=== PATIENT | male | born 1965 | race Caucasian/White ===

== ENCOUNTER 2024-05-22 02:23 | Emergency (ER) | payer OTHER, MEDICAID ==
[~2024-05-22] VITALS: Ht 139.7 cm; Wt 72.7 kg
[~2024-05-22 02:23] MED LIST: ALBU18HF12 IH; AMLO-258 PO; AMOX-457 PO; BENZ-227 PO; GUAIF600 PO; HYDR25TA84 PO; METO-391 PO; PRED-554 PO; PREG25 PO
[2024-05-22 02:56] LABS: GLUCOMETER DEV NAME(LOC) ER.7; GLUCOSE,POINT OF CARE 121 MG/DL (70-110)
[2024-05-22 03:11] VITALS: TEMP 98.3
[2024-05-22] MEDS: METHOCARBAMOL 500 MG TABLET PO ONE (03:19)
[2024-05-22] MEDS: KETOROLAC TROMETHAMINE 30 MG/ML VIAL IM ONE (03:19)
[2024-05-22] MEDS: ACETAMINOPHEN 325 MG TABLET PO ONE (03:20)
[2024-05-22] MEDS: LIDOCAINE 5% TRANSDERMAL PATCH TD ONE (04:18)
[2024-05-22] MEDS ORDERED: METH-812 PO (04:19)
[2024-05-22 05:35] VITALS: BP 142/92; PULSE 72; RESP 18; O2SAT 97
== END 2024-05-22 05:57 | disposition home or self-care (01) ==
LOC: EMS 02:23
DX: M54.50 Low back pain, unspecified (principal); F41.9 Anxiety disorder, unspecified; J44.9 Chronic obstructive pulmonary disease, unspecified; E11.9 Type 2 diabetes mellitus without complications; I10 Essential (primary) hypertension; F17.210 Nicotine dependence, cigarettes, uncomplicated; F15.90 Other stimulant use, unspecified, uncomplicated
CPT/HCPCS: 99284; 82962; 96372; J1885

== ENCOUNTER 2024-09-15 15:35 | Inpatient (IN) | payer OTHER, MEDICAID ==
[~2024-09-15] VITALS: Ht 139.7 cm; Wt 68.2 kg
[2024-09-15] VITALS (11 sets, daily range): BP systolic 135–146; BP diastolic 62–84; PULSE 71–141; RESP 16–22; TEMP 97.7–98.9; O2SAT 94–96
[~2024-09-15 15:35] MED LIST changes: +ARIP2TAB3 PO; -BENZ-227 PO; +DOXY-354 PO; +FLUT1BLS3 IH; -GUAIF600 PO; +MELO-107 PO; +METH-812 PO; -METO-391 PO; +METO25 PO; +OMEP20 PO; -PRED-554 PO; +PRED-729 PO
[2024-09-15] MEDS ORDERED: NAPR-1197 PO (15:39)
[2024-09-15 17:41] LABS: BASOPHILS % (AUTO) 0.5 % (0.0-2.0); EOSINOPHILS % (AUTO) 3.9 % (1.0-6.0); LYMPHOCYTES % (AUTO) 22.2 % (22.0-44.0); MEAN CORPUSCULAR HEMOGLOBIN 20.1 pg (26.0-34.0); MEAN CORPUSCULAR HGB CONC 28.4 G/dL (31.0-37.0); MEAN CORPUSCULAR VOLUME 71 fL (80-100); MONOCYTES # (AUTO) 0.9 K/uL (0.1-1.0); MONOCYTES % (AUTO) 9.8 % (2.0-9.0); NEUTROPHILS # (AUTO) 5.6 K/uL (1.8-7.7); NEUTROPHILS % (AUTO) 63.6 % (40.0-70.0); PLATELET COUNT (AUTO) 395 K/uL (150-450); RED BLOOD CELL COUNT(AUTO) 2.76 MIL/uL (4.50-5.90); RED CELL DISTRIBUTION WIDTH 25.9 % (11.5-14.5); WHITE BLOOD COUNT (AUTO) 8.9 K/uL (4.5-11.0)
[2024-09-15] MEDS: FUROSEMIDE 20 MG TABLET PO ONE (17:41)
[2024-09-15] MEDS: MethylPREDNISolone SOD SUCC 125 MG/2 ML VIAL IM ONE (17:42)
[2024-09-15] MEDS: IPRATROPIUM BROMIDE 0.5 MG/2.5 ML NEB SOLUTION NEB ONE (17:42)
[2024-09-15] MEDS: ALBUTEROL SULFATE 2.5 MG/0.5 ML 5 ML NEB SOLUTION NEB ONE (17:42)
[2024-09-15 17:49] LABS: ANION GAP 7 mmol/L (8-16); CALCIUM, TOTAL 8.6 mg/dL (8.8-10.5); CARBON DIOXIDE 29 mmol/L (22-29); CHLORIDE 106 mmol/L (98-107); CREATININE 0.65 mg/dL (0.60-1.30); GLOMERULAR FILTR. RATE CALC > 60 mL/min (>60); GLUCOSE,RANDOM 95 mg/dL (70-110); POTASSIUM 3.8 mmol/L (3.5-5.1); SODIUM SERUM 142 mmol/L (136-145); UREA NITROGEN, BLOOD 15 mg/dL (7-18)
[2024-09-15 17:56] LABS: HEMATOCRIT 19.6 % (41-53); HEMOGLOBIN 5.6 g/dL (13.5-17.5)
[2024-09-15 18:12] LABS: TROPONIN I-HIGH SENSITIVITY 9 ng/L (<76)
[2024-09-15 18:14] LABS: B-TYPE NATRIURETIC PEPTIDE 93 pg/mL (0-100)
[2024-09-15 18:31] LABS: % IRON SATURATION 3.1 % (30-44)
[2024-09-15 18:48] LABS: RBC MORPHOLOGY COMMENT ABNORMAL RBC MORPH
[2024-09-15 19:10] LABS: COVID AG,FIA SOURCE NASAL SWAB
[2024-09-15] MEDS ORDERED: SODIUM CHLORIDE 0.9% 500 ML IV ONE (19:19)
[2024-09-15 19:30] LABS: INFLUENZA TYPE A NEGATIVE FOR TYPE A (NEGATIVE); INFLUENZA TYPE B NEGATIVE FOR TYPE B (NEGATIVE)
[2024-09-15 19:31] LABS: SARS-COV2 (COVID) ANTIGEN,FIA Negative (Negative)
[2024-09-15 20:35] LABS: PATHOLOGY REVIEW, DIFF YES
[2024-09-15] MEDS: DiphenhydrAMINE HCL 25 MG CAPSULE PO ONE (20:36)
[2024-09-15] MEDS: ACETAMINOPHEN 500 MG TABLET PO ONE (20:36)
[2024-09-15] MEDS ORDERED: MORPHINE SULFATE 2 MG/ML SYRINGE IVP PRN (23:45)
[2024-09-15] MEDS ORDERED: ONDANSETRON HCL 4 MG/2 ML VIAL IVP PRN (23:45)
[2024-09-15] MEDS ORDERED: MAGNESIUM HYDROXIDE SUSPENSION 30 ML UDCUP PO PRN (23:45)
[2024-09-15] MEDS ORDERED: BISACODYL 10 MG RECTAL RECTAL SUPPOSITORY PR PRN (23:45)
[2024-09-16] VITALS (14 sets, daily range): BP systolic 112–153; BP diastolic 56–86; PULSE 78–102; RESP 16–20; TEMP 97.5–99; O2SAT 94–100
[2024-09-16] MEDS: MethylPREDNISolone SOD SUCC 125 MG/2 ML VIAL IVP SCH (00:26)
[2024-09-16] MEDS: HEPARIN SODIUM,PORCINE 5,000 UNITS/ML VIAL SQ SCH (00:27)
[2024-09-16] MEDS: OMEPRAZOLE 20 MG CAPSULE PO ONE (00:29)
[2024-09-16] MEDS: ALBUTEROL SULFATE 2.5 MG/0.5 ML NEB SOLUTION NEB SCH (03:00)
[2024-09-16] MEDS: IPRATROPIUM BROMIDE 0.5 MG/2.5 ML NEB SOLUTION NEB SCH (03:00)
[2024-09-16] MEDS: OxyCODONE HCL/ACETAMINOPHEN 5-325 MG TABLET PO PRN (04:12)
[2024-09-16] MEDS: ALBUTEROL SULFATE 2.5 MG/0.5 ML NEB SOLUTION NEB PRN (04:35)
[2024-09-16] MEDS: IPRATROPIUM BROMIDE 0.5 MG/2.5 ML NEB SOLUTION NEB PRN (04:35)
[2024-09-16 06:49] LABS: HEMATOCRIT 25.1 % (41-53); HEMOGLOBIN 7.7 g/dL (13.5-17.5); MEAN CORPUSCULAR HEMOGLOBIN 22.6 pg (26.0-34.0); MEAN CORPUSCULAR HGB CONC 30.6 G/dL (31.0-37.0); MEAN CORPUSCULAR VOLUME 74 fL (80-100); PLATELET COUNT (AUTO) 589 K/uL (150-450); RED BLOOD CELL COUNT(AUTO) 3.41 MIL/uL (4.50-5.90); RED CELL DISTRIBUTION WIDTH 25.7 % (11.5-14.5); WHITE BLOOD COUNT (AUTO) 6.8 K/uL (4.5-11.0)
[2024-09-16 07:40] LABS: BAND NEUTROPHILS % (MANUAL) 2 % (0-5); LYMPHOCYTES % (MANUAL) 7 % (22-44); MONOCYTES % (MANUAL) 3 % (2-9); SEGMENTED NEUTROPHILS % 88 % (40-70); TOTAL CELLS COUNTED 100
[2024-09-16 07:41] LABS: RBC MORPHOLOGY COMMENT DIMORPHIC RBC
[2024-09-16] MEDS: PANTOPRAZOLE SODIUM 40 MG DR TABLET PO SCH (08:10)
[2024-09-16] MEDS: PREGABALIN 25 MG CAPSULE PO SCH (08:10)
[2024-09-16] MEDS: MELOXICAM 7.5 MG TABLET PO SCH (08:11)
[2024-09-16] MEDS: DOCUSATE SODIUM 100 MG CAPSULE PO SCH (08:12)
[2024-09-16] MEDS: ACETAMINOPHEN 325 MG TABLET PO PRN (16:09)
[2024-09-16] MEDS: NICOTINE 21 MG/24 HOUR PATCH TD SCH (21:10)
[2024-09-16] MEDS: ZOLPIDEM TARTRATE 5 MG TABLET PO PRN (22:00)
[2024-09-17] VITALS (16 sets, daily range): BP systolic 132–151; BP diastolic 68–75; PULSE 74–107; RESP 17–20; TEMP 97.9–98.4; O2SAT 93–100
[2024-09-17] MEDS ORDERED: SODIUM CHLORIDE 0.9% 250 ML IV ONE (04:28)
[2024-09-17] MEDS: SOD FERRIC GLUC COMPLX/SUCROSE 125 MG in SODIUM CHLORIDE 0.9% 100 ML IV ONE (04:33)
[2024-09-17] MEDS: LORazepam 2 MG/ML VIAL IVP PRN (05:51)
[2024-09-17 06:52] LABS: BASOPHILS % (AUTO) 0.1 % (0.0-2.0); EOSINOPHILS % (AUTO) 0 % (1.0-6.0); HEMATOCRIT 25.2 % (41-53); HEMOGLOBIN 7.6 g/dL (13.5-17.5); LYMPHOCYTES # (AUTO) 1.1 K/uL (1.0-4.8); LYMPHOCYTES % (AUTO) 8.3 % (22.0-44.0); MEAN CORPUSCULAR HGB CONC 30.1 G/dL (31.0-37.0); MEAN CORPUSCULAR VOLUME 73 fL (80-100); MONOCYTES # (AUTO) 0.4 K/uL (0.1-1.0); MONOCYTES % (AUTO) 3.2 % (2.0-9.0); NEUTROPHILS # (AUTO) 11.3 K/uL (1.8-7.7); PLATELET COUNT (AUTO) 594 K/uL (150-450); RED BLOOD CELL COUNT(AUTO) 3.45 MIL/uL (4.50-5.90); RED CELL DISTRIBUTION WIDTH 26.2 % (11.5-14.5); WHITE BLOOD COUNT (AUTO) 12.7 K/uL (4.5-11.0)
[2024-09-17 07:06] LABS: ANION GAP 5 mmol/L (8-16); CALCIUM, TOTAL 8.8 mg/dL (8.8-10.5); CARBON DIOXIDE 31 mmol/L (22-29); CHLORIDE 101 mmol/L (98-107); CREATININE 0.75 mg/dL (0.60-1.30); GLOMERULAR FILTR. RATE CALC > 60 mL/min (>60); GLUCOSE,RANDOM 150 mg/dL (70-110); POTASSIUM 4.4 mmol/L (3.5-5.1); SODIUM SERUM 137 mmol/L (136-145); UREA NITROGEN, BLOOD 21 mg/dL (7-18)
[2024-09-17 07:17] LABS: NEUTROPHILS % (AUTO) 88.4 % (40.0-70.0)
[2024-09-17 08:14] LABS: RBC MORPHOLOGY COMMENT DIMORPHIC RBC
[2024-09-17] MEDS: FERROUS SULFATE 325 MG EC TABLET PO SCH (11:28)
[2024-09-17] MEDS: MethylPREDNISolone SOD SUCC 125 MG/2 ML VIAL IVP SCH (11:32)
[2024-09-17 16:59] LABS: PH,URINE DRUG SCREEN 6.5 (5.0-8.0)
[2024-09-17 17:07] LABS: ALCOHOL, URINE DRUG SCREEN NEGATIVE (NEGATIVE); AMPHET/METH SCREEN,URINE NEGATIVE (NEGATIVE); BARBITURATE SCREEN, URINE NEGATIVE (NEGATIVE); BENZODIAZEPINES SCREEN,URINE NEGATIVE (NEGATIVE); CANNABINOID SCREEN,URINE NEGATIVE (NEGATIVE); COCAINE SCREEN,URINE NEGATIVE (NEGATIVE); METHADONE SCREEN, URINE NEGATIVE (NEGATIVE); OPIATE SCREEN,URINE NEGATIVE (NEGATIVE); PHENCYCLIDINE SCREEN,URINE NEGATIVE (NEGATIVE)
[2024-09-17] MEDS: PANTOPRAZOLE SODIUM 40 MG DR TABLET PO SCH (20:41)
[2024-09-18] VITALS (18 sets, daily range): BP systolic 105–161; BP diastolic 55–91; PULSE 76–103; RESP 17–20; TEMP 97.4–98.7; O2SAT 93–100
[2024-09-18] MEDS: MethylPREDNISolone SOD SUCC 125 MG/2 ML VIAL IVP SCH (15:40)
[2024-09-19] VITALS (9 sets, daily range): BP systolic 125–165; BP diastolic 70–100; PULSE 82–91; RESP 18–28; TEMP 98–98.3; O2SAT 94–98
[2024-09-19 05:26] LABS: GLUCOMETER DEV NAME(LOC) 5S.1D; GLUCOSE,POINT OF CARE 167 MG/DL (70-110)
[2024-09-19 06:43] LABS: HEMATOCRIT 25.5 % (41-53); HEMOGLOBIN 7.4 g/dL (13.5-17.5); MEAN CORPUSCULAR HEMOGLOBIN 21.7 pg (26.0-34.0); MEAN CORPUSCULAR VOLUME 75 fL (80-100); PLATELET COUNT (AUTO) 532 K/uL (150-450); RED BLOOD CELL COUNT(AUTO) 3.42 MIL/uL (4.50-5.90); WHITE BLOOD COUNT (AUTO) 18.5 K/uL (4.5-11.0)
[2024-09-19 07:08] LABS: BAND NEUTROPHILS % (MANUAL) 3 % (0-5); LYMPHOCYTES % (MANUAL) 9 % (22-44); MONOCYTES % (MANUAL) 3 % (2-9); RBC MORPHOLOGY COMMENT DIMORPHIC; SEGMENTED NEUTROPHILS % 85 % (40-70); TOTAL CELLS COUNTED 100
[2024-09-19] MEDS: CloNIDine HCL 0.1 MG TABLET PO PRN (08:58)
[2024-09-19] MEDS ORDERED: FERR325T27 PO (11:45)
== END 2024-09-19 15:25 | disposition home or self-care (01) | DRG 189 ==
LOC: EMS 15:35 → EDH 21:00 → 5S 09-16 01:03
PROVIDERS: ADMIT Hospitalist; ATTEND Hospitalist
PROC: 30233N1 Transfusion of Nonautologous Red Blood Cells into Peripheral Vein, Percutaneous Approach (ICD-10-PCS; principal; 2024-09-15)
DX: J96.21 Acute and chronic respiratory failure with hypoxia (principal); J44.1 Chronic obstructive pulmonary disease with (acute) exacerbation; Z99.81 Dependence on supplemental oxygen; D50.9 Iron deficiency anemia, unspecified; Z20.822 Contact with and (suspected) exposure to COVID-19; I50.9 Heart failure, unspecified; I11.0 Hypertensive heart disease with heart failure; F41.9 Anxiety disorder, unspecified; Z68.34 Body mass index [BMI] 34.0-34.9, adult; E66.9 Obesity, unspecified; E11.9 Type 2 diabetes mellitus without complications; Z87.891 Personal history of nicotine dependence
CPT/HCPCS: 71045; 80048; 80307; 82271; 82962; 83540; 83550; 83880; 84484; 85007; 85025; 85027; 85045; 86850; 86900; 86901; 86923; 87804; 93005; 93306; 94640; 99285; G0378; J1644; J2060; J2916; J2919; J7040; J7050; P9016; 36415-L1; 36415-TC; J7613

== ENCOUNTER 2025-01-03 13:49 | Emergency (ER) | payer MEDICARE, MEDICAID ==
[~2025-01-03] VITALS: Ht 139.7 cm; Wt 69.0 kg
[~2025-01-03 13:49] MED LIST changes: -AMLO-258 PO; -AMOX-457 PO; -ARIP2TAB3 PO; -DOXY-354 PO; +FERR325T27 PO; -HYDR25TA84 PO; -MELO-107 PO; -METH-812 PO; -METO25 PO; +OMEP-148 PO; -OMEP20 PO
[2025-01-03 13:55] VITALS: TEMP 98.2
[2025-01-03 14:16] LABS: GLUCOMETER DEV NAME(LOC) ERT.6; GLUCOSE,POINT OF CARE 143 MG/DL (70-110)
[2025-01-03 14:27] LABS: BASOPHILS % (AUTO) 0.3 % (0.0-2.0); EOSINOPHILS % (AUTO) 2.4 % (1.0-6.0); HEMATOCRIT 34.2 % (41-53); HEMOGLOBIN 10.3 g/dL (13.5-17.5); LYMPHOCYTES # (AUTO) 1.5 K/uL (1.0-4.8); LYMPHOCYTES % (AUTO) 16.4 % (22.0-44.0); MEAN CORPUSCULAR HEMOGLOBIN 22.9 pg (26.0-34.0); MEAN CORPUSCULAR HGB CONC 30.1 G/dL (31.0-37.0); MEAN CORPUSCULAR VOLUME 76 fL (80-100); MONOCYTES # (AUTO) 0.8 K/uL (0.1-1.0); MONOCYTES % (AUTO) 8.5 % (2.0-9.0); NEUTROPHILS # (AUTO) 6.4 K/uL (1.8-7.7); NEUTROPHILS % (AUTO) 72.4 % (40.0-70.0); PLATELET COUNT (AUTO) 355 K/uL (150-450); RED BLOOD CELL COUNT(AUTO) 4.49 MIL/uL (4.50-5.90); RED CELL DISTRIBUTION WIDTH 21.3 % (11.5-14.5); WHITE BLOOD COUNT (AUTO) 8.9 K/uL (4.5-11.0)
[2025-01-03 14:31] LABS: ANION GAP 8 mmol/L (8-16); CALCIUM, TOTAL 9.2 mg/dL (8.8-10.5); CARBON DIOXIDE 28 mmol/L (22-29); CHLORIDE 102 mmol/L (98-107); CREATININE 0.55 mg/dL (0.60-1.30); GLOMERULAR FILTR. RATE CALC > 60 mL/min (>60); GLUCOSE,RANDOM 110 mg/dL (70-110); POTASSIUM 3.5 mmol/L (3.5-5.1); SODIUM SERUM 138 mmol/L (136-145); UREA NITROGEN, BLOOD 20 mg/dL (7-18)
[2025-01-03 14:38] LABS: B-TYPE NATRIURETIC PEPTIDE 14 pg/mL (0-100)
[2025-01-03 14:41] LABS: TROPONIN I-HIGH SENSITIVITY 7 ng/L (<76)
[2025-01-03 14:45] LABS: RBC MORPHOLOGY COMMENT ABNORMAL RBC MORPH
[2025-01-03] MEDS ORDERED: FLUT1BLS3 IH (16:47)
[2025-01-03] MEDS ORDERED: FERR325T27 PO (16:47)
[2025-01-03] MEDS ORDERED: OMEP-148 PO (16:47)
[2025-01-03] MEDS ORDERED: PREG25 PO (16:47)
[2025-01-03] MEDS ORDERED: PRED-729 PO (16:47)
[2025-01-03] MEDS ORDERED: ALBU18HF12 IH (16:47)
[2025-01-03 17:03] VITALS: BP 152/77; PULSE 84; RESP 20; O2SAT 98
== END 2025-01-03 17:11 | disposition home or self-care (01) ==
LOC: EMS 13:52
DX: R07.2 Precordial pain (principal); J44.1 Chronic obstructive pulmonary disease with (acute) exacerbation; I11.0 Hypertensive heart disease with heart failure; I50.9 Heart failure, unspecified; E11.9 Type 2 diabetes mellitus without complications; F17.210 Nicotine dependence, cigarettes, uncomplicated; Z79.52 Long term (current) use of systemic steroids; Z79.899 Other long term (current) drug therapy
CPT/HCPCS: 71045; 80048; 82962; 83880; 84484; 85025; 93005; 99285; 36415-L1; 36415-TC

== ENCOUNTER 2025-01-08 10:11 | Inpatient (IN) | payer MEDICARE, MEDICAID ==
[~2025-01-08] VITALS: Ht 152.4 cm; Wt 88.1 kg
[2025-01-08 10:51] LABS: BASOPHILS % (AUTO) 0.5 % (0.0-2.0); EOSINOPHILS % (AUTO) 1.1 % (1.0-6.0); HEMATOCRIT 32.7 % (41-53); LYMPHOCYTES # (AUTO) 1.3 K/uL (1.0-4.8); LYMPHOCYTES % (AUTO) 15.5 % (22.0-44.0); MEAN CORPUSCULAR HGB CONC 30.5 G/dL (31.0-37.0); MEAN CORPUSCULAR VOLUME 75 fL (80-100); MONOCYTES # (AUTO) 0.6 K/uL (0.1-1.0); MONOCYTES % (AUTO) 6.9 % (2.0-9.0); NEUTROPHILS # (AUTO) 6.3 K/uL (1.8-7.7); PLATELET COUNT (AUTO) 365 K/uL (150-450); RED BLOOD CELL COUNT(AUTO) 4.34 MIL/uL (4.50-5.90); RED CELL DISTRIBUTION WIDTH 20.4 % (11.5-14.5); WHITE BLOOD COUNT (AUTO) 8.3 K/uL (4.5-11.0)
[2025-01-08 11:03] LABS: ANION GAP 7 mmol/L (8-16); CALCIUM, TOTAL 9.3 mg/dL (8.8-10.5); CARBON DIOXIDE 29 mmol/L (22-29); CHLORIDE 102 mmol/L (98-107); CREATININE 0.59 mg/dL (0.60-1.30); GLOMERULAR FILTR. RATE CALC > 60 mL/min (>60); GLUCOSE,RANDOM 105 mg/dL (70-110); POTASSIUM 3.9 mmol/L (3.5-5.1); SODIUM SERUM 138 mmol/L (136-145); UREA NITROGEN, BLOOD 22 mg/dL (7-18)
[2025-01-08 11:09] LABS: ALBUMIN 3.3 g/dL (3.4-5.0); BILIRUBIN,DIRECT 0.1 mg/dL (0.00-0.20); BILIRUBIN,TOTAL 0.2 mg/dL (0.1-1.0); TOTAL PROTEIN, SERUM 7.1 g/dL (6.4-8.2)
[2025-01-08 11:11] LABS: COVID AG,FIA SOURCE NASAL SWAB
[2025-01-08 11:12] LABS: B-TYPE NATRIURETIC PEPTIDE 24 pg/mL (0-100)
[2025-01-08 11:13] LABS: CREATINE KINASE, TOTAL ONLY 72 U/L (39-308); TROPONIN I-HIGH SENSITIVITY 7 ng/L (<76)
[2025-01-08 11:14] LABS: PROTHROMBIN TIME 10.1 SEC (9.4-11.6)
[2025-01-08 11:30] LABS: INFLUENZA TYPE A NEGATIVE FOR TYPE A (NEGATIVE); INFLUENZA TYPE B NEGATIVE FOR TYPE B (NEGATIVE); SARS-COV2 (COVID) ANTIGEN,FIA Negative (Negative)
[2025-01-08] MEDS: HydrALAZINE HCL 20 MG/ML VIAL IVP ONE (11:33)
[2025-01-08] MEDS ORDERED: CloNIDine HCL 0.1 MG TABLET PO PRN (11:45)
[2025-01-08] MEDS ORDERED: ONDANSETRON HCL 4 MG/2 ML VIAL IVP PRN (11:45)
[2025-01-08 12:04] LABS: AMPHET/METH SCREEN,URINE NEGATIVE (NEGATIVE); BARBITURATE SCREEN, URINE NEGATIVE (NEGATIVE); BENZODIAZEPINES SCREEN,URINE NEGATIVE (NEGATIVE); CANNABINOID SCREEN,URINE NEGATIVE (NEGATIVE); COCAINE SCREEN,URINE NEGATIVE (NEGATIVE); METHADONE SCREEN, URINE NEGATIVE (NEGATIVE); OPIATE SCREEN,URINE NEGATIVE (NEGATIVE); PHENCYCLIDINE SCREEN,URINE NEGATIVE (NEGATIVE)
[2025-01-08 12:05] LABS: ALCOHOL, URINE DRUG SCREEN NEGATIVE (NEGATIVE)
[2025-01-08 12:10] LABS: APPEARANCE,URINE CLEAR (CLEAR); BILIRUBIN,URINE NEGATIVE (NEGATIVE); COLOR,URINE COLORLESS (YELLOW); GLUCOSE, URINE (UA) NEGATIVE (NEGATIVE); KETONES,URINE NEGATIVE (NEGATIVE); LEUKOCYTE ESTERASE ,URINE NEGATIVE (NEGATIVE); NITRATE,URINE NEGATIVE (NEGATIVE); OCCULT BLOOD,URINE NEGATIVE (NEGATIVE); PROTEIN,URINE NEGATIVE (NEGATIVE); SPECIFIC GRAVITIY, URINE 1.005 (1.003-1.030); UROBILINOGEN,URINE <=1.0 mg/dL (<=1.0)
[2025-01-08] MEDS: ACETAMINOPHEN 325 MG TABLET PO PRN (12:45)
[2025-01-08 14:40] LABS: TROPONIN I-HIGH SENSITIVITY 9 ng/L (<76)
[2025-01-08] MEDS: PREGABALIN 25 MG CAPSULE PO ONE (15:22)
[2025-01-08 17:59] VITALS: BP 155/82; PULSE 85; RESP 22; TEMP 98.5; O2SAT 96
[2025-01-08 19:59] VITALS: BP 140/83; PULSE 81; RESP 20; TEMP 98.2; O2SAT 99
[2025-01-08] MEDS: DOCUSATE SODIUM 100 MG CAPSULE PO SCH (20:59)
[2025-01-09 00:23] VITALS: BP 151/63; PULSE 73; RESP 18; TEMP 98.2; O2SAT 97
[2025-01-09 05:39] VITALS: BP 143/62; PULSE 66; RESP 18; TEMP 97.9; O2SAT 100
[2025-01-09 07:37] LABS: BASOPHILS % (AUTO) 0.7 % (0.0-2.0); EOSINOPHILS % (AUTO) 4.7 % (1.0-6.0); HEMATOCRIT 31.5 % (41-53); HEMOGLOBIN 9.6 g/dL (13.5-17.5); LYMPHOCYTES # (AUTO) 0.9 K/uL (1.0-4.8); LYMPHOCYTES % (AUTO) 16.6 % (22.0-44.0); MEAN CORPUSCULAR HEMOGLOBIN 23.1 pg (26.0-34.0); MEAN CORPUSCULAR HGB CONC 30.6 G/dL (31.0-37.0); MEAN CORPUSCULAR VOLUME 76 fL (80-100); MONOCYTES # (AUTO) 0.6 K/uL (0.1-1.0); NEUTROPHILS # (AUTO) 3.8 K/uL (1.8-7.7); PLATELET COUNT (AUTO) 325 K/uL (150-450); RED BLOOD CELL COUNT(AUTO) 4.15 MIL/uL (4.50-5.90); RED CELL DISTRIBUTION WIDTH 20.9 % (11.5-14.5); WHITE BLOOD COUNT (AUTO) 5.7 K/uL (4.5-11.0)
[2025-01-09 07:45] LABS: RBC MORPHOLOGY COMMENT ABNORMAL RBC MORPH
[2025-01-09 07:47] LABS: ANION GAP 3 mmol/L (8-16); CALCIUM, TOTAL 8.7 mg/dL (8.8-10.5); CARBON DIOXIDE 31 mmol/L (22-29); CHLORIDE 106 mmol/L (98-107); CREATININE 0.46 mg/dL (0.60-1.30); GLOMERULAR FILTR. RATE CALC > 60 mL/min (>60); GLUCOSE,RANDOM 97 mg/dL (70-110); POTASSIUM 4.4 mmol/L (3.5-5.1); SODIUM SERUM 140 mmol/L (136-145); UREA NITROGEN, BLOOD 20 mg/dL (7-18)
[2025-01-09 08:02] VITALS: PULSE 67; RESP 19; TEMP 98.2; O2SAT 100
[2025-01-09] MEDS: PREGABALIN 25 MG CAPSULE PO SCH (09:23)
[2025-01-09] MEDS: FAMOTIDINE 20 MG TABLET PO SCH (09:23)
[2025-01-09 11:10] VITALS: BP 152/67; PULSE 74; RESP 19; TEMP 98.1; O2SAT 99
== END 2025-01-09 15:50 | disposition home or self-care (01) | DRG 305 ==
LOC: EMS 10:12 → EDH 12:21 → 5N 15:43
PROVIDERS: ADMIT Internal Medicine; ATTEND Internal Medicine
DX: I16.0 Hypertensive urgency (principal); J96.11 Chronic respiratory failure with hypoxia; E66.9 Obesity, unspecified; I10 Essential (primary) hypertension; Z20.822 Contact with and (suspected) exposure to COVID-19; E11.9 Type 2 diabetes mellitus without complications; F41.9 Anxiety disorder, unspecified; J44.89 Other specified chronic obstructive pulmonary disease; Z87.891 Personal history of nicotine dependence; Z68.37 Body mass index [BMI] 37.0-37.9, adult
CPT/HCPCS: 71045; 80048; 80076; 80307; 81003; 82550; 83880; 84484; 85025; 85610; 85730; 87804; 93005; 96374; 99285; J0360; 36415-L1; 36415-TC

== ENCOUNTER 2025-01-26 18:22 | Inpatient (IN) | payer MEDICARE, MEDICAID ==
[~2025-01-26] VITALS: Ht 139.7 cm; Wt 91.4 kg
[~2025-01-26 18:22] MED LIST changes: -FERR325T27 PO; -PRED-729 PO
[2025-01-26 19:20] LABS: BASOPHILS % (AUTO) 0.5 % (0.0-2.0); EOSINOPHILS % (AUTO) 4.6 % (1.0-6.0); HEMATOCRIT 31.8 % (41-53); HEMOGLOBIN 9.7 g/dL (13.5-17.5); LYMPHOCYTES % (AUTO) 12.1 % (22.0-44.0); MEAN CORPUSCULAR HEMOGLOBIN 22.3 pg (26.0-34.0); MEAN CORPUSCULAR HGB CONC 30.4 G/dL (31.0-37.0); MEAN CORPUSCULAR VOLUME 74 fL (80-100); MONOCYTES # (AUTO) 0.6 K/uL (0.1-1.0); MONOCYTES % (AUTO) 6.9 % (2.0-9.0); NEUTROPHILS # (AUTO) 6.3 K/uL (1.8-7.7); NEUTROPHILS % (AUTO) 75.9 % (40.0-70.0); PLATELET COUNT (AUTO) 341 K/uL (150-450); RED BLOOD CELL COUNT(AUTO) 4.33 MIL/uL (4.50-5.90); RED CELL DISTRIBUTION WIDTH 20.4 % (11.5-14.5); WHITE BLOOD COUNT (AUTO) 8.3 K/uL (4.5-11.0)
[2025-01-26 19:25] LABS: ANION GAP 5 mmol/L (8-16); CALCIUM, TOTAL 8.7 mg/dL (8.8-10.5); CARBON DIOXIDE 31 mmol/L (22-29); CHLORIDE 106 mmol/L (98-107); CREATININE 0.58 mg/dL (0.60-1.30); GLOMERULAR FILTR. RATE CALC > 60 mL/min (>60); GLUCOSE,RANDOM 89 mg/dL (70-110); POTASSIUM 4.1 mmol/L (3.5-5.1); SODIUM SERUM 142 mmol/L (136-145); UREA NITROGEN, BLOOD 15 mg/dL (7-18)
[2025-01-26 19:30] LABS: B-TYPE NATRIURETIC PEPTIDE 78 pg/mL (0-100)
[2025-01-26 19:34] LABS: LIPASE 25 U/L (16-77); TROPONIN I-HIGH SENSITIVITY 9 ng/L (<76)
[2025-01-26 19:42] LABS: RBC MORPHOLOGY COMMENT ABNORMAL RBC MORPH
[2025-01-26] MEDS ORDERED: 0.9% SODIUM CHLORIDE 5 ML NEB SOLUTION NEB ONE (19:54)
[2025-01-26] MEDS: ALBUTEROL SULFATE 2.5 MG/0.5 ML NEB SOLUTION NEB ONE (19:56)
[2025-01-26 20:00] VITALS: PULSE 80; RESP 22; O2SAT 94
[2025-01-26 20:10] VITALS: PULSE 75; RESP 20; O2SAT 100
[2025-01-26] MEDS: MethylPREDNISolone SOD SUCC 125 MG/2 ML VIAL IVP ONE (20:44)
[2025-01-26 21:23] LABS: APPEARANCE,URINE CLEAR (CLEAR); BILIRUBIN,URINE NEGATIVE (NEGATIVE); COLOR,URINE LIGHT YELLOW (YELLOW); GLUCOSE, URINE (UA) NEGATIVE (NEGATIVE); KETONES,URINE NEGATIVE (NEGATIVE); LEUKOCYTE ESTERASE ,URINE MODERATE (NEGATIVE); NITRATE,URINE NEGATIVE (NEGATIVE); OCCULT BLOOD,URINE NEGATIVE (NEGATIVE); PH,URINE 6.5 (5.0-8.0); PROTEIN,URINE NEGATIVE (NEGATIVE); SPECIFIC GRAVITIY, URINE 1.019 (1.003-1.030); UROBILINOGEN,URINE <=1.0 mg/dL (<=1.0)
[2025-01-26] MEDS ORDERED: IPRATROPIUM BROMIDE 0.5 MG/2.5 ML NEB SOLUTION NEB PRN (21:30)
[2025-01-26] MEDS ORDERED: ALBUTEROL SULFATE 2.5 MG/0.5 ML NEB SOLUTION NEB PRN (21:30)
[2025-01-26] MEDS ORDERED: ONDANSETRON HCL 4 MG/2 ML VIAL IVP PRN (21:30)
[2025-01-26 21:43] LABS: BACTERIA,URINE Few /HPF (None Seen); RBC,URINE None Seen /HPF (0-2); SQUAMOUS EPITHELIAL CELL,UR Few /LPF (None Seen)
[2025-01-26 22:01] LABS: % IRON SATURATION 3.6 % (30-44)
[2025-01-26] MEDS: FUROSEMIDE 20 MG/2 ML VIAL IVP SCH (22:06)
[2025-01-26] MEDS: ACETAMINOPHEN 325 MG TABLET PO PRN (22:18)
[2025-01-26] MEDS: AZITHROMYCIN 500 MG/NS 250 ML IV SCH (22:19)
[2025-01-26] MEDS: CefTRIAXone 1 GM/DEXTROSE 50 ML IV SCH (22:19)
[2025-01-26 22:20] LABS: LACTIC ACID 0.7 mmol/L (0.4-2.0)
[2025-01-26] MEDS: HEPARIN SODIUM,PORCINE 5,000 UNITS/ML VIAL SQ SCH (23:01)
[2025-01-26] MEDS ORDERED: DEXTROSE 50%-WATER 25 GM/50 ML SYRINGE IVP PRN (23:15)
[2025-01-26 23:40] VITALS: BP 152/92; PULSE 75; RESP 18; TEMP 98; O2SAT 95
[2025-01-27 01:02] LABS: TROPONIN I-HIGH SENSITIVITY 7 ng/L (<76)
[2025-01-27 01:06] LABS: GLUCOMETER DEV NAME(LOC) 5N.1D; GLUCOSE,POINT OF CARE 189 MG/DL (70-110)
[2025-01-27 04:44] VITALS: BP 172/77; PULSE 71; RESP 17; TEMP 98.1; O2SAT 96
[2025-01-27] MEDS: INSULIN LISPRO 100 UNITS/ML SQ PRN (06:10)
[2025-01-27 06:17] LABS: BASOPHILS % (AUTO) 0.2 % (0.0-2.0); EOSINOPHILS % (AUTO) 0 % (1.0-6.0); HEMATOCRIT 32.1 % (41-53); HEMOGLOBIN 9.8 g/dL (13.5-17.5); LYMPHOCYTES # (AUTO) 0.3 K/uL (1.0-4.8); LYMPHOCYTES % (AUTO) 3.1 % (22.0-44.0); MEAN CORPUSCULAR HEMOGLOBIN 22.3 pg (26.0-34.0); MEAN CORPUSCULAR HGB CONC 30.5 G/dL (31.0-37.0); MEAN CORPUSCULAR VOLUME 73 fL (80-100); MONOCYTES # (AUTO) 0.1 K/uL (0.1-1.0); MONOCYTES % (AUTO) 0.8 % (2.0-9.0); PLATELET COUNT (AUTO) 313 K/uL (150-450); RED CELL DISTRIBUTION WIDTH 20.1 % (11.5-14.5); WHITE BLOOD COUNT (AUTO) 8.4 K/uL (4.5-11.0)
[2025-01-27 06:24] VITALS: BP 178/84; RESP 18; O2SAT 98
[2025-01-27 06:25] LABS: GLUCOMETER DEV NAME(LOC) 5N.2C; GLUCOSE,POINT OF CARE 209 MG/DL (70-110)
[2025-01-27 06:26] LABS: NEUTROPHILS % (AUTO) 95.9 % (40.0-70.0)
[2025-01-27 06:30] LABS: ANION GAP 9 mmol/L (8-16); CALCIUM, TOTAL 8.6 mg/dL (8.8-10.5); CARBON DIOXIDE 31 mmol/L (22-29); CHLORIDE 105 mmol/L (98-107); GLOMERULAR FILTR. RATE CALC > 60 mL/min (>60); GLUCOSE,RANDOM 186 mg/dL (70-110); POTASSIUM 4.1 mmol/L (3.5-5.1); SODIUM SERUM 145 mmol/L (136-145); UREA NITROGEN, BLOOD 13 mg/dL (7-18)
[2025-01-27] MEDS: AmLODIPine BESYLATE 10 MG TABLET PO SCH (06:37)
[2025-01-27 07:58] VITALS: BP 177/89; PULSE 79; RESP 17; TEMP 98.2; O2SAT 98
[2025-01-27] MEDS: METOPROLOL TARTRATE 25 MG TABLET PO SCH (08:17)
[2025-01-27] MEDS: MethylPREDNISolone SOD SUCC 125 MG/2 ML VIAL IVP SCH (08:17)
[2025-01-27] MEDS: DOCUSATE SODIUM 100 MG CAPSULE PO SCH (08:17)
[2025-01-27] MEDS ORDERED: HydrALAZINE HCL 10 MG TABLET PO PRN (11:15)
[2025-01-27 11:19] VITALS: BP 170/79; PULSE 77; RESP 16; TEMP 98.6; O2SAT 97
[2025-01-27] MEDS: HydrALAZINE HCL 20 MG/ML VIAL IVP PRN (11:22)
[2025-01-27 11:40] LABS: GLUCOMETER DEV NAME(LOC) 5N.2C; GLUCOSE,POINT OF CARE 300 MG/DL (70-110)
[2025-01-27] MEDS ORDERED: GABAPENTIN 100 MG CAPSULE PO SCH (11:45)
[2025-01-27 12:50] LABS: ALCOHOL, URINE DRUG SCREEN NEGATIVE (NEGATIVE); AMPHET/METH SCREEN,URINE NEGATIVE (NEGATIVE); BARBITURATE SCREEN, URINE NEGATIVE (NEGATIVE); BENZODIAZEPINES SCREEN,URINE NEGATIVE (NEGATIVE); CANNABINOID SCREEN,URINE NEGATIVE (NEGATIVE); COCAINE SCREEN,URINE NEGATIVE (NEGATIVE); METHADONE SCREEN, URINE NEGATIVE (NEGATIVE); OPIATE SCREEN,URINE NEGATIVE (NEGATIVE); PHENCYCLIDINE SCREEN,URINE NEGATIVE (NEGATIVE)
[2025-01-27 15:51] VITALS: BP 169/77; PULSE 80; RESP 17; TEMP 98.9; O2SAT 96
[2025-01-27] MEDS: lisinopriL 10 MG TABLET PO SCH (16:58)
[2025-01-27] MEDS: PREGABALIN 50 MG CAPSULE PO SCH (16:58)
[2025-01-27 17:20] LABS: GLUCOMETER DEV NAME(LOC) 5N.1D; GLUCOSE,POINT OF CARE 104 MG/DL (70-110)
[2025-01-27 20:00] VITALS: BP 120/69; PULSE 85; RESP 18; TEMP 98.2; O2SAT 96
[2025-01-27 21:46] LABS: GLUCOMETER DEV NAME(LOC) 5N.2C; GLUCOSE,POINT OF CARE 216 MG/DL (70-110)
[2025-01-27] MEDS ORDERED: SODIUM CHLORIDE 0.9% 250 ML IV ONE (22:52)
[2025-01-28] VITALS: BP 143/103; PULSE 73; RESP 18; TEMP 98.1; O2SAT 98
[2025-01-28 04:00] VITALS: BP 157/121; PULSE 80; RESP 20; TEMP 97.7; O2SAT 97
[2025-01-28 06:31] LABS: GLUCOMETER DEV NAME(LOC) 5S.2D; GLUCOSE,POINT OF CARE 128 MG/DL (70-110)
[2025-01-28 07:45] LABS: INFLUENZA A-RTPCR,COMBO NEGATIVE (NEGATIVE); INFLUENZA B-RTPCR,COMBO NEGATIVE (NEGATIVE); RESPIRATORY SYNCYTIAL VRS-PCR NEGATIVE (NEGATIVE); SARS COVID19 RTPCR, COMBO NEGATIVE (NEGATIVE)
[2025-01-28] MEDS: METOPROLOL TARTRATE 50 MG TABLET PO SCH (08:28)
[2025-01-28 08:44] VITALS: BP 123/60; PULSE 69; RESP 20; TEMP 98.2; O2SAT 98
[2025-01-28 09:41] LABS: BASOPHILS % (AUTO) 0.3 % (0.0-2.0); EOSINOPHILS % (AUTO) 0 % (1.0-6.0); HEMATOCRIT 33.1 % (41-53); HEMOGLOBIN 9.8 g/dL (13.5-17.5); LYMPHOCYTES # (AUTO) 1.6 K/uL (1.0-4.8); LYMPHOCYTES % (AUTO) 11.6 % (22.0-44.0); MEAN CORPUSCULAR HGB CONC 29.8 G/dL (31.0-37.0); MEAN CORPUSCULAR VOLUME 74 fL (80-100); MONOCYTES # (AUTO) 0.9 K/uL (0.1-1.0); MONOCYTES % (AUTO) 6.3 % (2.0-9.0); NEUTROPHILS # (AUTO) 11.2 K/uL (1.8-7.7); NEUTROPHILS % (AUTO) 81.8 % (40.0-70.0); PLATELET COUNT (AUTO) 356 K/uL (150-450); RED BLOOD CELL COUNT(AUTO) 4.47 MIL/uL (4.50-5.90); RED CELL DISTRIBUTION WIDTH 20.4 % (11.5-14.5); WHITE BLOOD COUNT (AUTO) 13.7 K/uL (4.5-11.0)
[2025-01-28 09:49] LABS: ANION GAP 5 mmol/L (8-16); CALCIUM, TOTAL 8.8 mg/dL (8.8-10.5); CARBON DIOXIDE 32 mmol/L (22-29); CHLORIDE 103 mmol/L (98-107); CREATININE 0.67 mg/dL (0.60-1.30); GLOMERULAR FILTR. RATE CALC > 60 mL/min (>60); GLUCOSE,RANDOM 117 mg/dL (70-110); POTASSIUM 3.9 mmol/L (3.5-5.1); SODIUM SERUM 140 mmol/L (136-145); UREA NITROGEN, BLOOD 22 mg/dL (7-18)
[2025-01-28 10:50] LABS: RBC MORPHOLOGY COMMENT ABNORMAL RBC MORPH
[2025-01-28 11:11] VITALS: BP 102/49; PULSE 66; RESP 22; TEMP 98.2; O2SAT 98
[2025-01-28] MEDS: FLUTICASONE/VILANTEROL 200-25 MCG/INH INHALER [14] IH SCH (12:06)
[2025-01-28] MEDS: MethylPREDNISolone SOD SUCC 125 MG/2 ML VIAL IVP SCH (12:06)
[2025-01-28] MEDS: GuaiFENesin/D-METHORPHAN [SUGAR-FREE] 200-20MG/10 ML SYRUP UDCUP PO PRN (14:41)
[2025-01-28 15:32] VITALS: BP 139/63; PULSE 66; RESP 20; TEMP 98.4; O2SAT 93
[2025-01-28] MEDS: BENZONATATE 100 MG CAPSULE PO SCH ×2 (15:58)
[2025-01-28 17:01] LABS: GLUCOMETER DEV NAME(LOC) 5S.2D; GLUCOSE,POINT OF CARE 146 MG/DL (70-110)
[2025-01-28 20:00] VITALS: BP 132/70; PULSE 74; RESP 18; TEMP 98.2; O2SAT 92
[2025-01-28 21:21] LABS: GLUCOMETER DEV NAME(LOC) 5N.1D; GLUCOSE,POINT OF CARE 154 MG/DL (70-110)
[2025-01-28 22:31] LABS: GLUCOMETER DEV NAME(LOC) 5S.2D; GLUCOSE,POINT OF CARE 254 MG/DL (70-110)
[2025-01-29] VITALS: BP 135/80; PULSE 65; RESP 21; TEMP 97.7; O2SAT 99
[2025-01-29 04:00] VITALS: BP 150/58; PULSE 65; RESP 20; TEMP 97.5; O2SAT 99
[2025-01-29 06:26] LABS: GLUCOMETER DEV NAME(LOC) 5S.2D; GLUCOSE,POINT OF CARE 141 MG/DL (70-110)
[2025-01-29 07:13] LABS: BASOPHILS % (AUTO) 0.1 % (0.0-2.0); EOSINOPHILS % (AUTO) 0 % (1.0-6.0); HEMOGLOBIN 9.4 g/dL (13.5-17.5); LYMPHOCYTES # (AUTO) 0.3 K/uL (1.0-4.8); LYMPHOCYTES % (AUTO) 2.1 % (22.0-44.0); MEAN CORPUSCULAR HEMOGLOBIN 22.5 pg (26.0-34.0); MEAN CORPUSCULAR HGB CONC 30.5 G/dL (31.0-37.0); MEAN CORPUSCULAR VOLUME 74 fL (80-100); MONOCYTES # (AUTO) 0.3 K/uL (0.1-1.0); NEUTROPHILS # (AUTO) 13.8 K/uL (1.8-7.7); PLATELET COUNT (AUTO) 331 K/uL (150-450); RED BLOOD CELL COUNT(AUTO) 4.21 MIL/uL (4.50-5.90); WHITE BLOOD COUNT (AUTO) 14.4 K/uL (4.5-11.0)
[2025-01-29 07:18] LABS: NEUTROPHILS % (AUTO) 95.8 % (40.0-70.0)
[2025-01-29 07:39] LABS: ANION GAP 6 mmol/L (8-16); CALCIUM, TOTAL 8.5 mg/dL (8.8-10.5); CARBON DIOXIDE 31 mmol/L (22-29); CHLORIDE 104 mmol/L (98-107); CREATININE 0.56 mg/dL (0.60-1.30); GLOMERULAR FILTR. RATE CALC > 60 mL/min (>60); GLUCOSE,RANDOM 136 mg/dL (70-110); POTASSIUM 4.3 mmol/L (3.5-5.1); SODIUM SERUM 141 mmol/L (136-145); UREA NITROGEN, BLOOD 22 mg/dL (7-18)
[2025-01-29 08:05] VITALS: BP 165/70; PULSE 71; RESP 18; TEMP 98; O2SAT 71; O2SAT 97
[2025-01-29 08:42] LABS: RBC MORPHOLOGY COMMENT ABNORMAL RBC MORPH
[2025-01-29] MEDS ORDERED: LISI-893 PO (11:18)
[2025-01-29] MEDS ORDERED: AMLO-258 PO (11:18)
[2025-01-29] MEDS ORDERED: FURO20TA4 PO (11:18)
[2025-01-29] MEDS ORDERED: ALBU18HF12 IH (11:18)
[2025-01-29] MEDS ORDERED: BENZ-227 PO (11:18)
[2025-01-29] MEDS ORDERED: PRED-554 PO (11:18)
[2025-01-29] MEDS ORDERED: FLUT1BLS3 IH (11:18)
[2025-01-29] MEDS ORDERED: AMOX-457 PO (11:20)
[2025-01-29 11:51] VITALS: BP 147/73; PULSE 61; RESP 18; TEMP 98.4; O2SAT 97
[2025-01-29 12:06] LABS: GLUCOMETER DEV NAME(LOC) 5S.2D; GLUCOSE,POINT OF CARE 200 MG/DL (70-110)
[2025-01-30] MEDS ORDERED: FUROSEMIDE 20 MG TABLET PO SCH (09:00)
== END 2025-01-29 13:30 | disposition home or self-care (01) | DRG 291 ==
LOC: EMS 19:24 → EDH 21:19 → 5S 23:49
PROVIDERS: ADMIT Internal Medicine; ATTEND Internal Medicine
DX: I11.0 Hypertensive heart disease with heart failure (principal); I50.33 Acute on chronic diastolic (congestive) heart failure; J18.9 Pneumonia, unspecified organism; J96.21 Acute and chronic respiratory failure with hypoxia; J44.1 Chronic obstructive pulmonary disease with (acute) exacerbation; J44.0 Chronic obstructive pulmonary disease with (acute) lower respiratory infection; Z68.42 Body mass index [BMI] 45.0-49.9, adult; Z20.822 Contact with and (suspected) exposure to COVID-19; E66.01 Morbid (severe) obesity due to excess calories; E11.9 Type 2 diabetes mellitus without complications; D64.9 Anemia, unspecified; G47.30 Sleep apnea, unspecified; F17.210 Nicotine dependence, cigarettes, uncomplicated; T38.0X5A Adverse effect of glucocorticoids and synthetic analogues, initial encounter; F41.9 Anxiety disorder, unspecified; Z79.899 Other long term (current) drug therapy; Z86.74 Personal history of sudden cardiac arrest; Z99.81 Dependence on supplemental oxygen; Y92.89 Other specified places as the place of occurrence of the external cause
CPT/HCPCS: 0241U; 71045; 71250; 80048; 80307; 81001; 82962; 83540; 83550; 83605; 83690; 83735; 83880; 84145; 84484; 85025; 85045; 87040; 93005; 93306; 94640; 99285; J0360; J0456; J0696; J1644; J1940; J2919; J7050; 36415-L1; 36415-TC; J7613